=== PATIENT | female | born 1940 | race Caucasian/White ===

== ENCOUNTER → 2017-02-28 | Outpatient (CLI) | payer MEDICARE ==
[~2017-02-28] MED LIST: ACET-2321 PO; ALPH200C3 PO; AMOX500T2 PO; ASPI-557 PO; BACL10TA PO; CALC-946 PO; CYAN10009 PO; ESCI10TA47 PO; ESTRPATC4; FLUT16SP12 NS; GLUC1CAP39; ISAGENIX PO; MAGN1TAB2 PEG; NAPR220T61 PO; ONDA4TAB10 PO; OXYB5TAB73 PO; PANT40TA27 PO; PYRI100T2 PO; RANI150T12 PO; RIZATRIPTAN; TRAM50TA4 PO; TURM500C7 PO; VITA1TAB15 PO; VITA600C3 PO; [UNRECOGNIZED DRUG - CODE] PO; [UNRECOGNIZED DRUG - CODE] PO; diflucan PO
--- NOTE | 2017-02-28 16:24 | DI ---
Indication: ITS.REASON: S09.90XA INJURY OF HEAD PROCEDURE: CT HEAD W/O CONTRAST: Encounter: Initial Comparison: None Technique: Axial CT images through the head were performed without contrast. Iterative Reconstruction dose reducing technique was utilized. FINDINGS: The ventricles are of normal size, shape, and contour for the patient's age. There are scattered areas of low attenuation in the white matter which most likely represent changes from chronic microvascular ischemia. The brainstem, cerebellum, and cerebral hemispheres otherwise have a normal morphology and CT attenuation. There is no evidence of midline displacement. No hemorrhage, signs of acute territorial stroke, mass effect, mass lesions, or edema is evident. The visualized portions of the skull base, midface, and calvarium demonstrate no abnormality. The paranasal sinuses are well aerated and free of significant disease. The tympanic and mastoid cavities appear normal. IMPRESSION: No acute intracranial abnormality or hemorrhage. .
== END ==
LOC: IMA 15:48
PROVIDERS: ATTEND Family Medicine
DX: Z03.89 Encounter for observation for other suspected diseases and conditions ruled out (principal); Z91.81 History of falling